=== PATIENT | female | born 1965 | race Hispanic/Latino ===

== ENCOUNTER 2020-08-20 10:46 | Emergency (ER) | payer OTHER, SELFPAY ==
[~2020-08-20 10:46] MED LIST: Iopamidol-370 76% 500 ML 1 ML ONE
[2020-08-20 11:40] LABS: #Monocytes 0.5 thou/uL (0.11-0.59); #Neutrophils 5.9 thou/uL (1.40-6.50); %Basophils 0.2 % (0.0-1.0); %Eosinophils 0.5 % (0.0-10.0); %Lymphocytes 23.7 % (21.0-51.0); %Monocytes 5.6 % (0.0-10.0); Hemoglobin 13.6 g/dL (12.0-16.0); Mean Corpuscular HGB CONC 32.8 g/dL (32.0-36.0); Mean Corpuscular Hemoglobin 29.5 pg (27.0-31.0); Mean Platelet Volume 7.7 fL (7.4-10.4); Platelet Count 327 thou/uL (130-400); RBC Distribution Width 11.9 % (11.5-14.5); Red Blood Cell (RBC) Count 4.61 mill/uL (4.20-5.40); White Blood Cell (WBC) Count 8.4 thou/uL (4.8-10.8)
[2020-08-20 11:54] LABS: ALT (SGPT) 16 U/L (8-55); AST (SGOT) 30 U/L (5-34); Albumin 4.2 g/dL (3.5-5.0); Alkaline Phosphatase 557 U/L (40-110); Anion Gap 13 mmol/L (10-20); BUN (Urea Nitrogen) 5 mg/dL (9.8-20.1); Bilirubin, Total 0.5 mg/dL (0.2-1.2); Calc. Creatinine Clearance 0 mL/min (70-130); Calcium 9.2 mg/dL (7.8-10.44); Carbon Dioxide 27 mmol/L (22-29); Chloride 101 mmol/L (98-107); Globulin 3.7 g/dL (2.4-3.5); Glucose 105 mg/dL (70-105); Lipase 17 U/L (8-78); Potassium 4.1 mmol/L (3.5-5.1); Protein, Total 7.9 g/dL (6.0-8.3); Sodium 137 mmol/L (136-145)
[2020-08-20 12:21] LABS: Bilirubin Negative (Negative); Blood, Urine Negative (Negative); Clarity Clear (Clear); Glucose, Urine (Dipstick) Normal (Negative); Ketone, Urine Negative (Negative); Leukocyte Negative Leu/uL (Negative); Nitrite Negative (Negative); Protein, Urine (Dipstick) Negative (Neg-Trace); Specific Gravity, Urine 1.004 (1.002-1.036); Urobilinogen Normal mg/dL (Less than 2)
--- NOTE | 2020-08-20 13:04 | CT ---
CT Abdomen Pelvis W Con History: Abdominal pain Comparison: None. Findings: Lung bases are clear. No pericardial effusion. Small volume perihepatic fluid. No perisplenic fluid. Very large mass of the left adnexa with central necrosis. The mass measures up to 15 cm in transverse dimension. Numerous metastatic bilateral common iliac and retroperitoneal periaortic lymph nodes. Abnormal infiltration of the omentum along the right:. This mass infiltrates into the small bowel mes entery. There is displacement of the sigmoid colon by this mass. Likely a second mass of the right adnexa which extensive ovary measures up to 6 cm in size may be met astatic in nature. The aortic contour is nonaneurysmal. No hydronephrosis. No acute osseous abnormality. No suspicious osteolytic or osteoblastic lesions. Impression: 1. 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 2. Likely metastatic right adnexal 6 cm mass. 3. Small volume perihepatic ascites may be sequelae of omental infarction given the mental infiltrati on. Malignant ascites is also possibility. 4. Either omental infarction versus early omental infiltration of tumor along the right colon.
[2020-08-20] MEDS ORDERED: Ketorolac Tromethamine 30 MG/ML VIAL ONE (13:49)
== END 2020-08-20 14:42 | disposition home or self-care (01) ==
LOC: ERS 10:46
DX: K59.00 Constipation, unspecified (principal); R19.09 Other intra-abdominal and pelvic swelling, mass and lump; E78.5 Hyperlipidemia, unspecified; I10 Essential (primary) hypertension
CPT/HCPCS: 36415; 74177; 80053; 81003; 83690; 85025; 96374; J1885; Q9967